=== PATIENT | male | born 1970 | race Caucasian/White ===

== ENCOUNTER 2017-12-08 00:18 | Emergency (ER) | payer MEDICAID, OTHER ==
[~2017-12-08] VITALS: Ht 167.6 cm; Wt 90.7 kg
--- NOTE | 2017-12-08 00:20 | NUR ---
47 yo male bb ra from [facility], patient was in custody started complaining of chest pain. patient is refusing to answer any questions at this time. patient skin warm and dry, resp even and unlabored. awaiting orders from provider. 18g left wrist started by em[facility]
[2017-12-08 01:00] LABS: BASOPHILS # (AUTO) 0.1 /CMM (0.0-0.2); EOSINOPHILS % (AUTO) 2.1 % (0.0-6.0); HEMATOCRIT 44 % (39-51); LYMPHOCYTES # (AUTO) 2.9 /CMM (0.8-4.8); LYMPHOCYTES % (AUTO) 33.3 % (20.0-44.0); MEAN CORPUSCULAR HGB CONC 34 g/dl (31.0-36.0); MEAN CORPUSCULAR VOLUME 89 fL (80-96); MONOCYTES # (AUTO) 0.5 /CMM (0.1-1.30); MONOCYTES % (AUTO) 6.2 % (2.0-12.0); NEUTROPHILS # (AUTO) 4.9 /CMM (1.8-8.9); NEUTROPHILS % (AUTO) 57.4 % (43.0-81.0); PLATELET COUNT (AUTO) 238 /CMM (150-450); RDW COEFFICIENT OF VARIATION 17.4 (11.5-15.0); RED BLOOD CELL COUNT(AUTO) 4.97 MIL/uL (4.5-6.0); WHITE BLOOD COUNT (AUTO) 8.6 K/uL (4.3-11.0)
[2017-12-08 01:12] LABS: CALCIUM, SERUM 8.6 mg/dL (8.5-10.1); CREATININE 0.9 mg/dL (0.6-1.3); POTASSIUM 4.1 mmol/L (3.5-5.1)
[2017-12-08 01:13] LABS: INR 0.95 (0.87-1.13)
--- NOTE | 2017-12-08 01:16 | NUR ---
CALLED TELESTROKE HOTLINE SPOKE WITH NANY , EXPECTING A CALL BACK FROM DR CROWDER.
[2017-12-08] MEDS ORDERED: IOHEXOL-350 100 ML VIAL IV ONE (01:19)
[2017-12-08] MEDS ORDERED: CT SWABBABLE VALVE TRANS SET 1 EA INFUS.SET MC ONE (01:20)
[2017-12-08 01:21] LABS: TROPONIN I 0.018 ng/mL (0.00-0.056)
--- NOTE | 2017-12-08 01:28 | NUR ---
MD MAGUIRE CALLED CODE STROKE DUE TO PATIENT BEING APHASIC. DUING IV INSERTION PATIENT STATES "SHIT" AT 0128. EVER SINCE THEN PATIENT HAS BEEN VERBAL. APTIENT DENIES ANY CHEST PAIN, N/V/DIARRHEA OR ANY OTHER MEDICAL COMPLAINTS. PATIENT SAID THAT HE WAS NOT ABLE TO SPEAK, HE DOES NOT KNOW WHY. MD MAGUIRE NOTIFIED, WILL CONTINUE TO MONITOR
[2017-12-08 01:35] LABS: CHOLESTEROL 254 mg/dL (<200); TRIGLYCERIDES 332 mg/dL (30-150)
[2017-12-08 01:36] LABS: HDL CHOLESTEROL 39 mg/dL (40-60); LDL 169 mg/dL (0-99)
--- NOTE | 2017-12-08 02:56 | NUR ---
Patient discharged to home in stable condition. Written and verbal after care instructions given. Patient verbalizes understanding of instruction.IV removed. Catheter intact and site benign. Pressure and 4x4 applied to site. No bleeding noted. PT ambulatory with a steady gait
[2017-12-08 02:57] VITALS: BP 144/100
== END 2017-12-08 02:59 | disposition home or self-care (01) ==
LOC: ER 00:20
DX: F41.0 Panic disorder [episodic paroxysmal anxiety] (principal); F10.10 Alcohol abuse, uncomplicated; I25.10 Atherosclerotic heart disease of native coronary artery without angina pectoris; Z95.0 Presence of cardiac pacemaker
CPT/HCPCS: 36415; 70450-TC; 70496-TC; 70498-TC; 71045-TC; 80048-TC; 80061-TC; 84484-TC; 85025-TC; 85730-TC; A4606; G0480; Q9967; Z7610

== ENCOUNTER 2018-05-01 14:09 | Emergency (ER) | payer MEDICAID, OTHER ==
[~2018-05-01] VITALS: Ht 170.2 cm; Wt 83.9 kg
--- NOTE | 2018-05-01 14:15 | NUR ---
PT BIB RA WITH [employer] CUSTODY C/O L SIDED CP STARTING AFTER GETTING PULLED OVER, NONRADIATING. SKIN WARM DRY. RESP EVEN UNLABORED. AMBULATORY STEADY GAIT. NAD NOTED.
--- NOTE | 2018-05-01 15:34 | NUR ---
DISCHARGED IN [employer] CUSTODY. Patient does not wish to proceed with medical care recommended by Dr. FOLEY. Patient given information related to possible complications, up to and including , which could occur as a result of leaving the hospital at this time. Patient verbalizes understanding of risks involved due to leaving against medical advice. Patient has signed AMA form.
[2018-05-01 15:38] VITALS: BP 132/93
== END 2018-05-01 15:39 | disposition home or self-care (01) ==
LOC: ER 14:12
DX: R07.89 Other chest pain (principal); E78.00 Pure hypercholesterolemia, unspecified; I25.2 Old myocardial infarction; F41.9 Anxiety disorder, unspecified; F10.10 Alcohol abuse, uncomplicated; F17.200 Nicotine dependence, unspecified, uncomplicated; Y90.9 Presence of alcohol in blood, level not specified; Z95.0 Presence of cardiac pacemaker
CPT/HCPCS: A4606; Z7610